=== PATIENT | male | born 1985 | race Caucasian/White ===

== ENCOUNTER 2017-12-12 12:12 | Emergency (ER) | payer OTHER ==
[2017-12-12 12:23] VITALS: RESP 18; O2SAT 98
[2017-12-12] MEDS ORDERED: Iodixanol 320 mg/ml 150 ml Bottle IV ONE (13:33)
[2017-12-12 13:42] LABS: BASO # 0.1 K/uL (0.0-0.2); BASO % 0.6 % (0.0-2.0); EOS # 0.1 K/uL (0.0-0.7); HEMOGLOBIN 17.6 g/dL (12.0-18.0); LYMPH % 29.3 % (20.0-40.0); MEAN CELL VOLUME 89.2 fL (80.0-94.0); MEAN CORPUSCULAR HEMOGLOBIN 31.7 pg (27.0-31.0); MEAN CORPUSCULAR HGB CONC 35.5 g/dL (33.0-37.0); MEAN PLATELET VOLUME 9.4 fL (7.2-11.7); MONO # 0.9 K/uL (0.0-0.8); NEUT # 6.2 K/uL (1.8-7.0); NEUT % 60.1 % (50.0-75.0); NRBC % 0.1 % (0.0-2.0); RBC 5.57 Mil/uL (4.40-5.90); RED CELL DISTRIBUTION WIDTH 13.3 % (11.5-14.5); WHITE BLOOD COUNT 10.2 K/uL (4.8-10.8)
[2017-12-12 14:05] LABS: ALBUMIN 4.1 g/dL (3.5-5.0); ALT/SGPT 36 U/L (21-72); AST/SGOT 41 U/L (17-59); BLOOD UREA NITROGEN 14 mg/dL (9-20); CALCIUM 9.1 mg/dl (8.6-10.4); GFR AFRICAN-AMERICAN > 60; GFR NON-AFRICAN AMERICAN > 60
--- NOTE | 2017-12-12 15:18 | CT ---
PROCEDURE: CT Angiography , Pelvis and Lower Extremity with Contrast HISTORY: pain and swelling left popliteal fossa with dec pu COMPARISON: None. TECHNIQUE: Technique: CT angiography of the pelvis and bilateral lower extremities performed in the arterial phase of enhancement. Coronal and sagittal reformats, and well as rotating MIP images of the vessels generated at the workstation. Intravenous contrast dose: 100 mL Visipaque 320. Radiation dose: Total exam DLP = 1185.61 mGy-cm. This CT exam was performed using one or more of the following dose reduction techniques: Automated exposure control, adjustment of the mA and/or kV according to patient size, and/or use of iterative reconstruction technique. FINDINGS: CT ANGIOGRAPHY: ABDOMINAL AORTA:: The abdominal aorta is normal in caliber and shape. MAJOR AORTIC BRANCHES: Inferior mesenteric artery is patent. Pelvic Arteries Right Common Iliac: Unremarkable. Right External Iliac: Unremarkable. Right Internal Iliac: Unremarkable. Left Common Iliac: Unremarkable. Left External Iliac: Unremarkable. Left Internal Iliac: Unremarkable. RIGHT LOWER EXTREMITY ARTERIES: Right Common Femoral: Unremarkable. Right Superficial Femoral: Unremarkable. Right Profunda Femoris: Unremarkable. Right Popliteal:Unremarkable. Right Anterior Tibial: Unremarkable. Right Tibioperoneal Trunk: Unremarkable. Right Posterior Tibial: Unremarkable. Right Peroneal: Unremarkable. Right dorsalis pedis : Unremarkable. LEFT LOWER EXTREMITY ARTERIES: Left Common Femoral: Unremarkable. Left Superficial Femoral: Unremarkable. Left Profunda Femoris: Unremarkable. Left Popliteal: Unremarkable. Left Anterior Tibial: Unremarkable. Left Tibioperoneal Trunk: Unremarkable. Left Posterior Tibial: Unremarkable. Left Peronea: Unremarkable. Left Dorsalis pedis: Unremarkable. NON-ANGIOGRAPHIC ASPECT OF THE EXAM: LOWER THORAX: Was not included LIVER: The abdomen was not included in this exam. GALLBLADDER AND BILE DUCTS: The abdomen was not included in this exam. PANCREAS: The abdomen was not included in this exam. SPLEEN: The abdomen was not included in this exam. ADRENALS: The abdomen was not included in this exam. KIDNEYS AND URETERS: The abdomen was not included in this exam. STOMACH AND BOWEL: The abdomen was not included in this exam. APPENDIX: No evidence of appendicitis. PERITONEUM: No evidence of free fluid or free air in the lower abdomen and pelvis. LYMPH NODES: Unremarkable. No enlarged lymph nodes. BLADDER: Unremarkable. REPRODUCTIVE: Unremarkable. BONES: No evidence of acute displaced fracture. OTHER FINDINGS: There is a small to moderate amount of left knee joint effusion noted. The possibility of soft tissue injury at the left knee cannot be excluded in this exam. None. IMPRESSION: No evidence of vascular injury. No evidence of hematoma or contrast extravasation. Small to moderate amount of left knee joint effusion.
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
[2017-12-12 16:41] VITALS: BP 100/58; PULSE 66; TEMP 98.9
--- NOTE | 2017-12-12 16:45 | RAD ---
PROCEDURE: Radiographs of the Right Shoulder HISTORY: pain at ac joint s/p fall COMPARISON: No prior. FINDINGS: BONES: Normal. No fracture. JOINTS: Normal. Glenohumeral and acromioclavicular joints preserved. No osteoarthritis. SOFT TISSUES: Normal. OTHER FINDINGS: None. IMPRESSION: No evidence of acute fracture or dislocation.
--- NOTE | 2017-12-12 16:48 | RAD ---
PROCEDURE: Left Knee Radiographs. HISTORY: Pain. COMPARISON: None. FINDINGS: BONES: Normal. No fracture. JOINTS: Normal. No osteoarthritis. JOINT EFFUSION: None. OTHER FINDINGS: None. IMPRESSION: No evidence of acute fracture or dislocation.
== END 2017-12-12 16:40 | disposition home or self-care (01) ==
LOC: C.ER 12:12
DX: S43.101A Unspecified dislocation of right acromioclavicular joint, initial encounter (principal); V28.4XXA Motorcycle driver injured in noncollision transport accident in traffic accident, initial encounter; Y92.89 Other specified places as the place of occurrence of the external cause; M25.462 Effusion, left knee
CPT/HCPCS: 73030; 73562; 75635; 80053; 85025; 96374; 99284; J1885; Q9967